=== PATIENT | male | born 1945 | race African-American/Black ===

== ENCOUNTER → 2017-05-05 | Emergency (ER) | payer OTHER ==
[~2017-05-05] VITALS: Ht 162.6 cm; Wt 77.1 kg
[~2017-05-05] MED LIST: AMBIEN10 MG; GLUMETZA1000 MG; NIFE60TA3; SYNTHROID175 MCG
== END | disposition left against medical advice (07) ==
LOC: ER 22:51
DX: R06.09 Other forms of dyspnea (principal)